=== PATIENT | male | born 1970 | race Caucasian/White ===

== ENCOUNTER 2019-07-28 04:28 | Inpatient (IN) ==
[2019-07-28] MEDS ORDERED: Naloxone 0.4 MG/ML INJ IVP PRN (07:12)
[2019-07-28] MEDS ORDERED: Ipratropium/Albuterol Neb 3 ML IH PRN (07:30)
[2019-07-28 07:36] LABS: Basophils # 0.1 K/mcL (0.0-0.2); Basophils % 0.3 %; Eosinophils % 0.1 %; Hematocrit 36.9 % (37.5-50.1); Hemoglobin 12.4 g/dL (12.9-16.9); Immature Granulocytes % 1.1 % (0-4); Lymphocytes # 3.4 K/mcL (0.6-4.6); Lymphocytes % 21.1 %; Mean Corpuscular HGB Conc 33.6 g/dL (31.6-35.5); Mean Corpuscular Hemoglobin 29.1 pg (28.0-33.3); Mean Corpuscular Volume 86.6 fL (83.0-100.0); Mean Platelet Volume 9.1 fL (9.4-12.4); Monocytes # 2.5 K/mcL (0.0-1.3); Monocytes % 15.3 %; Neutrophils # 10.1 K/mcL (1.6-8.9); Platelet Count 152 K/mcL (140-400); Red Blood Count 4.26 M/mcL (4.19-5.50); Red Cell Distribution Width 16.3 % (11.5-14.5); Segmented Neutrophils % 62.1 %; White Blood Count 16.2 K/mcL (4.3-11.1)
[2019-07-28 08:19] LABS: BUN/Creatinine Ratio 52 (6-26); Blood Urea Nitrogen 16 mg/dL (6-20); Calcium 8.1 mg/dL (8.6-10.3); Carbon Dioxide 27 mEq/L (23-29); Chloride 92 mEq/L (98-107); Glucose 108 mg/dL (70-105); Osmolality,Calculated 266 (280-300); Potassium 4.1 mEq/L (3.5-5.1); Sodium 127 mEq/L (136-145); eGFR For African Americans > 60 (> 60); eGFR For Non-African Americans > 60 (> 60)
[2019-07-28] MEDS: Azithromycin 500 MG in 0.9 % Sodium Chloride 250 ML IVPB SCH (08:25)
[2019-07-28] MEDS: 0.9 % Sodium Chloride 1,000 ML IVC SCH (08:28)
[2019-07-28] MEDS: cefTRIAXone 1,000 MG in Water for inj. (sterile) 10 ML IVP SCH (08:30)
[2019-07-28] MEDS: *HR* Enoxaparin 40 MG/0.4 ML SYRINGE SQ SCH (08:37)
[2019-07-28 10:14] LABS: Adenovirus Not Detected (Not Detect); Bordetella Pertussis Not Detected (Not Detect); Chlamydophila pneumoniae Not Detected (Not Detect); Coronavirus 229E Not Detected (Not Detect); Coronavirus HKU1 Not Detected (Not Detect); Coronavirus NL63 Not Detected (Not Detect); Coronavirus OC43 Not Detected (Not Detect); Human Metapneumovirus Not Detected (Not Detect); Human Rhinovirus/Enterovirus Not Detected (Not Detect); Influenza A Subtype 2009 H1 Not Detected (Not Detect); Influenza B Not Detected (Not Detect); Mycoplasma pneumoniae Not Detected (Not Detect); Parainfluenza Virus 1 Not Detected (Not Detect); Parainfluenza Virus 2 Not Detected (Not Detect); Parainfluenza Virus 3 Not Detected (Not Detect); Parainfluenza Virus 4 Not Detected (Not Detect); Respiratory Syncytial Virus Not Detected (Not Detect)
[2019-07-28] MEDS: Ipratropium/Albuterol Neb 3 ML IH SCH ×3 (11:53→21:40)
[2019-07-28 14:04] LABS: BUN/Creatinine Ratio 27 (6-26); Blood Urea Nitrogen 9 mg/dL (6-20); Calcium 8.5 mg/dL (8.6-10.3); Carbon Dioxide 31 mEq/L (23-29); Chloride 93 mEq/L (98-107); Glucose 73 mg/dL (70-105); Osmolality,Calculated 267 (280-300); Potassium 4.5 mEq/L (3.5-5.1); Sodium 130 mEq/L (136-145); eGFR For African Americans > 60 (> 60); eGFR For Non-African Americans > 60 (> 60)
[2019-07-28] MEDS ORDERED: *HR* LORazepam 1 MG TABLET PO PRN (17:33)
[2019-07-28] MEDS: Divalproex (24 HR) 500 MG TABLET PO SCH (20:45)
[2019-07-28] MEDS ORDERED: CarBAMazepine XR (12 hr) 100 MG TAB PO SCH (21:00)
[2019-07-29 03:04] LABS: Basophils # 0.1 K/mcL (0.0-0.2); Basophils % 0.4 %; Eosinophils % 0.1 %; Hematocrit 37.9 % (37.5-50.1); Hemoglobin 12.1 g/dL (12.9-16.9); Immature Granulocytes % 1.5 % (0-4); Lymphocytes # 3.2 K/mcL (0.6-4.6); Lymphocytes % 18.7 %; Mean Corpuscular HGB Conc 31.9 g/dL (31.6-35.5); Mean Corpuscular Hemoglobin 28.6 pg (28.0-33.3); Mean Corpuscular Volume 89.6 fL (83.0-100.0); Mean Platelet Volume 8.7 fL (9.4-12.4); Monocytes # 2.8 K/mcL (0.0-1.3); Monocytes % 16.5 %; Neutrophils # 10.7 K/mcL (1.6-8.9); Platelet Count 155 K/mcL (140-400); Red Blood Count 4.23 M/mcL (4.19-5.50); Red Cell Distribution Width 16.5 % (11.5-14.5); Segmented Neutrophils % 62.8 %; White Blood Count 17.1 K/mcL (4.3-11.1)
[2019-07-29 03:25] LABS: BUN/Creatinine Ratio 26 (6-26); Blood Urea Nitrogen 10 mg/dL (6-20); Carbon Dioxide 31 mEq/L (23-29); Chloride 93 mEq/L (98-107); Glucose 114 mg/dL (70-105); Magnesium 1.7 mg/dL (1.6-2.6); Osmolality,Calculated 268 (280-300); Phosphorous 3.8 mg/dL (2.7-4.5); Potassium 4.7 mEq/L (3.5-5.1); Sodium 129 mEq/L (136-145); eGFR For African Americans > 60 (> 60); eGFR For Non-African Americans > 60 (> 60)
[2019-07-29] MEDS ORDERED: Acetaminophen IV 1,000 MG/100 ML INFUS..BTL IVPB ONE (03:42)
[2019-07-29] MEDS: Ipratropium/Albuterol Neb 3 ML IH SCH ×6 (03:58→23:40)
[2019-07-29] MEDS: 0.9 % Sodium Chloride 1,000 ML IVC SCH ×2 (04:12→16:17)
[2019-07-29] MEDS: *HR* Enoxaparin 40 MG/0.4 ML SYRINGE SQ SCH (05:55)
[2019-07-29] MEDS: Azithromycin 500 MG in 0.9 % Sodium Chloride 250 ML IVPB SCH (05:58)
[2019-07-29] MEDS: cefTRIAXone 1,000 MG in Water for inj. (sterile) 10 ML IVP SCH (08:15)
[2019-07-29] MEDS ORDERED: Aminoglycoside Consult 1 EACH MC ONE (08:21)
[2019-07-29] MEDS ORDERED: CarBAMazepine XR (12 hr) 100 MG TAB PO SCH (09:00)
[2019-07-29] MEDS ORDERED: amLODIPine 5 MG TABLET PO SCH (09:00)
[2019-07-29] MEDS ORDERED: Cholecalciferol (D-3) 1,000 UNIT (25MCG) TABLET PO SCH (09:00)
[2019-07-29 09:04] LABS: ABG Base Excess 4 mEq/L (-2 to 3); ABG HCO3 38 mEq/L (21-27); ABG Oxygen Saturation 95 % (95-98); ABG PCO2 105 mmHg (35-45); ABG PH 7.16 pH Units (7.32-7.45); ABG PO2 99 mmHg (85-104); ABG TCO2 41 mEq/L (20-26)
[2019-07-29] MEDS ORDERED: Divalproex (24 HR) 500 MG TABLET PO SCH (12:00)
[2019-07-29] MEDS: Piperacillin/Tazobactam 3.375 GM in 0.9 % Sodium Chloride Mini Bag 100 ML IVPB SCH ×3 (12:02→20:26)
[2019-07-29] MEDS: SODIUM CHLORIDE 0.9% IVPB SCH ×3 (12:03→21:00)
[2019-07-29] MEDS: VALPROIC ACID IVPB SCH ×3 (12:03→21:00)
[2019-07-29 12:10] LABS: ABG Base Excess 10 mEq/L (-2 to 3); ABG HCO3 39 mEq/L (21-27); ABG Oxygen Saturation 99 % (95-98); ABG PCO2 70 mmHg (35-45); ABG PH 7.35 pH Units (7.32-7.45); ABG PO2 166 mmHg (85-104); ABG TCO2 41 mEq/L (20-26)
[2019-07-29] MEDS ORDERED: Acetaminophen 650 MG RECTAL SUPP RC PRN (16:37)
[2019-07-29 17:40] LABS: Bilirubin,Urine Negative (Negative); Blood,Urine Negative (Negative); Clarity,Urine Clear (Clear); Color,Urine Yellow (Yellow); Glucose,Urine (UA) Normal (Normal); Ketones,Urine 15 mg/dL (Negative); Leukocyte Esterase,Urine Negative (Negative); Nitrite,Urine Negative (Negative); Protein,Urine 30 mg/dL (Neg-Trace); Specific Gravity,Urine 1.024 (1.010-1.025); Urobilinogen,Urine Normal (Normal)
[2019-07-29 17:41] LABS: Bacteria,Urine None Seen per hpf (None-Few); Hyaline Casts,Urine None Seen per lpf (None-Few); RBC,Urine 0-3 per hpf (0-3); Squamous Epithelial Cell,Urine Moderate per lpf (None-Few); WBC,Urine 0-3 per hpf (0-3)
[2019-07-29] MEDS: Divalproex (24 HR) 500 MG TABLET PO SCH (19:36)
[2019-07-29] MEDS ORDERED: *HR* LORazepam 2 MG/ML VIAL IVP ONE (20:20)
[2019-07-30] MEDS: Ipratropium/Albuterol Neb 3 ML IH SCH ×5 (03:35→20:25)
[2019-07-30] MEDS: VALPROIC ACID IVPB SCH ×4 (03:36→23:40)
[2019-07-30] MEDS: Piperacillin/Tazobactam 3.375 GM in 0.9 % Sodium Chloride Mini Bag 100 ML IVPB SCH ×3 (03:36→20:47)
[2019-07-30] MEDS: SODIUM CHLORIDE 0.9% IVPB SCH ×4 (03:36→23:40)
[2019-07-30] MEDS: *HR* Enoxaparin 40 MG/0.4 ML SYRINGE SQ SCH (05:18)
[2019-07-30 05:51] LABS: Basophils # 0.1 K/mcL (0.0-0.2); Basophils % 0.7 %; Eosinophils # 0.1 K/mcL (0.0-0.6); Eosinophils % 0.5 %; Immature Granulocytes % 1.5 % (0-4); Lymphocytes # 3.3 K/mcL (0.6-4.6); Lymphocytes % 31.7 %; Mean Corpuscular HGB Conc 31.3 g/dL (31.6-35.5); Mean Corpuscular Hemoglobin 28.7 pg (28.0-33.3); Mean Corpuscular Volume 91.7 fL (83.0-100.0); Mean Platelet Volume 9.1 fL (9.4-12.4); Monocytes # 1.7 K/mcL (0.0-1.3); Monocytes % 16.5 %; Neutrophils # 5.1 K/mcL (1.6-8.9); Platelet Count 139 K/mcL (140-400); Red Blood Count 3.49 M/mcL (4.19-5.50); Red Cell Distribution Width 16.7 % (11.5-14.5); Segmented Neutrophils % 49.1 %; White Blood Count 10.4 K/mcL (4.3-11.1)
[2019-07-30 06:06] LABS: BUN/Creatinine Ratio 30 (6-26); Blood Urea Nitrogen 15 mg/dL (6-20); Calcium 8.1 mg/dL (8.6-10.3); Carbon Dioxide 32 mEq/L (23-29); Chloride 100 mEq/L (98-107); Glucose 80 mg/dL (70-105); Magnesium 1.8 mg/dL (1.6-2.6); Osmolality,Calculated 280 (280-300); Phosphorous 3.4 mg/dL (2.7-4.5); Potassium 4.5 mEq/L (3.5-5.1); Sodium 135 mEq/L (136-145); eGFR For African Americans > 60 (> 60); eGFR For Non-African Americans > 60 (> 60)
[2019-07-30 10:50] LABS: ABG Base Excess 11 mEq/L (-2 to 3); ABG HCO3 37 mEq/L (21-27); ABG Oxygen Saturation 93 % (95-98); ABG PCO2 58 mmHg (35-45); ABG PH 7.42 pH Units (7.32-7.45); ABG PO2 69 mmHg (85-104); ABG TCO2 39 mEq/L (20-26)
[2019-07-30] MEDS ORDERED: Perflutren Lipid Microsphere 1.3 ML in 0.9 % Sodium Chloride 8.7 ML IVP ONE (10:58)
[2019-07-30] MEDS ORDERED: Acetaminophen 650 MG RECTAL SUPP RC PRN (13:57)
[2019-07-30] MEDS ORDERED: Naloxone 0.4 MG/ML INJ IVP PRN (13:57)
[2019-07-30] MEDS ORDERED: Ipratropium/Albuterol Neb 3 ML IH PRN (13:57)
[2019-07-30] MEDS ORDERED: Acetaminophen 325 MG TABLET PO PRN (23:46)
[2019-07-31] MEDS: Ipratropium/Albuterol Neb 3 ML IH SCH ×7 (00:02→23:33)
[2019-07-31] MEDS: VALPROIC ACID IVPB SCH ×4 (05:05→21:51)
[2019-07-31] MEDS: SODIUM CHLORIDE 0.9% IVPB SCH ×4 (05:05→21:51)
[2019-07-31] MEDS: Piperacillin/Tazobactam 3.375 GM in 0.9 % Sodium Chloride Mini Bag 100 ML IVPB SCH (05:06)
[2019-07-31] MEDS: *HR* Enoxaparin 40 MG/0.4 ML SYRINGE SQ SCH (05:07)
[2019-07-31 05:55] LABS: ABG Base Excess 15 mEq/L (-2 to 3); ABG HCO3 39 mEq/L (21-27); ABG Oxygen Saturation 96 % (95-98); ABG PCO2 43 mmHg (35-45); ABG PH 7.57 pH Units (7.32-7.45); ABG PO2 69 mmHg (85-104); ABG TCO2 40 mEq/L (20-26)
[2019-07-31 07:30] LABS: White Blood Count 7.1 K/mcL (4.3-11.1)
[2019-07-31 07:31] LABS: Basophils % 0.4 %; Eosinophils # 0.1 K/mcL (0.0-0.6); Hematocrit 34.2 % (37.5-50.1); Hemoglobin 11.1 g/dL (12.9-16.9); Immature Granulocytes % 0.8 % (0-4); Lymphocytes # 2.3 K/mcL (0.6-4.6); Lymphocytes % 32.2 %; Mean Corpuscular HGB Conc 32.5 g/dL (31.6-35.5); Mean Corpuscular Hemoglobin 28.7 pg (28.0-33.3); Mean Corpuscular Volume 88.4 fL (83.0-100.0); Mean Platelet Volume 8.4 fL (9.4-12.4); Monocytes # 1.2 K/mcL (0.0-1.3); Monocytes % 16.4 %; Neutrophils # 3.5 K/mcL (1.6-8.9); Platelet Count 155 K/mcL (140-400); Red Blood Count 3.87 M/mcL (4.19-5.50); Red Cell Distribution Width 17.1 % (11.5-14.5); Segmented Neutrophils % 49.2 %
[2019-07-31] MEDS: amLODIPine 5 MG TABLET PO SCH (09:52)
[2019-07-31] MEDS: Cholecalciferol (D-3) 1,000 UNIT (25MCG) TABLET PO SCH (09:52)
[2019-07-31] MEDS ORDERED: Amoxicillin/Clavulanate 400 MG/5 ML UDC PO SCH (17:00)
[2019-07-31] MEDS: Amoxicillin/Clavulanate 200 MG/5 ML UDC PO SCH (18:24)
[2019-07-31] MEDS: *HR* LORazepam 1 MG TABLET PO PRN (21:50)
[2019-08-01] MEDS: Ipratropium/Albuterol Neb 3 ML IH SCH ×6 (03:34→23:45)
[2019-08-01] MEDS: VALPROIC ACID IVPB SCH ×4 (04:23→21:43)
[2019-08-01] MEDS: SODIUM CHLORIDE 0.9% IVPB SCH ×4 (04:23→21:43)
[2019-08-01 07:12] LABS: Basophils % 0.3 %; Eosinophils % 0.3 %; Monocytes % 17.6 %
[2019-08-01 07:14] LABS: Hemoglobin 10.1 g/dL (12.9-16.9); Immature Granulocytes % 0.7 % (0-4); Immature Platelets 1.5 % (1.1-6.1); Lymphocytes # 1.9 K/mcL (0.6-4.6); Lymphocytes % 28.3 %; Mean Corpuscular HGB Conc 32.6 g/dL (31.6-35.5); Mean Corpuscular Hemoglobin 28.7 pg (28.0-33.3); Mean Corpuscular Volume 88.1 fL (83.0-100.0); Mean Platelet Volume 8.8 fL (9.4-12.4); Monocytes # 1.2 K/mcL (0.0-1.3); Neutrophils # 3.6 K/mcL (1.6-8.9); Platelet Count 229 K/mcL (140-400); Red Blood Count 3.52 M/mcL (4.19-5.50); Red Cell Distribution Width 17.3 % (11.5-14.5); Segmented Neutrophils % 52.8 %; White Blood Count 6.8 K/mcL (4.3-11.1)
[2019-08-01 07:32] LABS: BUN/Creatinine Ratio 20 (6-26); Blood Urea Nitrogen 12 mg/dL (6-20); Calcium 8.7 mg/dL (8.6-10.3); Carbon Dioxide 29 mEq/L (23-29); Chloride 95 mEq/L (98-107); Glucose 94 mg/dL (70-105); Osmolality,Calculated 272 (280-300); Potassium 3.6 mEq/L (3.5-5.1); Sodium 131 mEq/L (136-145); eGFR For African Americans > 60 (> 60); eGFR For Non-African Americans > 60 (> 60)
[2019-08-01] MEDS: Cholecalciferol (D-3) 1,000 UNIT (25MCG) TABLET PO SCH ×2 (08:39→09:22)
[2019-08-01] MEDS: amLODIPine 5 MG TABLET PO SCH ×2 (08:39→09:22)
[2019-08-01] MEDS: *HR* Enoxaparin 40 MG/0.4 ML SYRINGE SQ SCH (09:17)
[2019-08-01] MEDS: Amoxicillin/Clavulanate 200 MG/5 ML UDC PO SCH (17:11)
[2019-08-01] MEDS: *HR* LORazepam 1 MG TABLET PO PRN (21:43)
[2019-08-02] MEDS: Ipratropium/Albuterol Neb 3 ML IH SCH ×6 (03:52→23:59)
[2019-08-02] MEDS: *HR* Enoxaparin 40 MG/0.4 ML SYRINGE SQ SCH (04:50)
[2019-08-02] MEDS: SODIUM CHLORIDE 0.9% IVPB SCH ×4 (04:51→21:29)
[2019-08-02] MEDS: VALPROIC ACID IVPB SCH ×4 (04:51→21:29)
[2019-08-02] MEDS: amLODIPine 5 MG TABLET PO SCH (08:19)
[2019-08-02] MEDS: Cholecalciferol (D-3) 1,000 UNIT (25MCG) TABLET PO SCH (08:20)
[2019-08-02] MEDS: Amoxicillin/Clavulanate 200 MG/5 ML UDC PO SCH ×2 (08:29→17:04)
[2019-08-03] MEDS: Ipratropium/Albuterol Neb 3 ML IH SCH ×3 (03:08→11:16)
[2019-08-03] MEDS: *HR* Enoxaparin 40 MG/0.4 ML SYRINGE SQ SCH (06:08)
[2019-08-03] MEDS: VALPROIC ACID IVPB SCH ×2 (06:08→08:42)
[2019-08-03] MEDS: SODIUM CHLORIDE 0.9% IVPB SCH ×2 (06:08→08:42)
[2019-08-03] MEDS: amLODIPine 5 MG TABLET PO SCH (08:41)
[2019-08-03] MEDS: Amoxicillin/Clavulanate 200 MG/5 ML UDC PO SCH (08:41)
[2019-08-03] MEDS: Cholecalciferol (D-3) 1,000 UNIT (25MCG) TABLET PO SCH (08:42)
[2019-08-03 11:36] VITALS: BP 142/93
== END 2019-08-03 13:27 | disposition home or self-care (01) | DRG 871 ==
LOC: 3BNU → SUATTDRO 11:10 → 2NENU 07-29 09:44 → ICNU 07-29 10:30 → 2ANU 07-30 19:19
PROVIDERS: ADMIT Internal Medicine; ATTEND Internal Medicine